=== PATIENT | male | born 1955 | race African-American/Black ===

== ENCOUNTER 2019-08-11 02:30 | Emergency (ER) | payer MEDICARE ==
[~2019-08-11] VITALS: Ht 182.9 cm; Wt 82.0 kg
[2019-08-11] MEDS ORDERED: HYDROCODONE/ACETAMINOPHEN 5/325MG TABLET PO ONE (03:15)
[2019-08-11 03:58] LABS: CLARITY URINE CLEAR (CLEAR); COLOR URINE YELLOW (YELLOW); KETONES URINE NEGATIVE (NEGATIVE); LEUKOCYTE ESTERASE URINE NEGATIVE (NEGATIVE); NITRITE URINE NEGATIVE (NEGATIVE); OCCULT BLOOD URINE 3+ (NEGATIVE); PROTEIN URINE TRACE (NEGATIVE); UROBILINOGEN URINE 0.2 E.U./dL (0.2-1.0)
[2019-08-11 05:00] VITALS: BP 141/81
== END 2019-08-11 05:00 | disposition home or self-care (01) ==
LOC: ER 02:30
DX: R33.9 Retention of urine, unspecified (principal)
CPT/HCPCS: 51702; 81003; 99284